=== PATIENT | female | born 1995 | race Asian ===

== ENCOUNTER 2018-01-21 16:22 | Emergency (ER) | payer MEDICAID ==
--- NOTE | 2018-01-21 17:11 | EDPHY ---
H & P Stated Complaint: L ANKLE INJ POST FALL Time Seen by Provider: 01/21/18 17:11 HPI/ROS: HPI: This is a 22-year-old female who presents with Chief Complaint: L ANKLE INJ POST FALL Location: Left lateral ankle Quality: Injury Duration: Prior to arrival Signs and Symptoms: No bleeding, no radiation, no numbness, no weakness, no tingling, no incontinence, + decreased range of motion, + swelling, + pain, no fever Timing: Acute Severity: [id number] Context: Patient is a student at [employer] reports that she was walking down the stairs and accidentally slipped on the bottom stair falling directly on her buttocks and twisting her left ankle. She believes that she everted her left ankle. She felt immediate, constant, moderate, nonradiating pain in the lateral portion. She reports that pain is increased with weight-bearing and touching the area. She has noticed swelling over the last 30 min to 1 hr. She has a history of ankle sprains in the past. Denies radiation, weakness, paresthesias.. Modifying Factors: No ice pack applied and no [id number] pain medications Comment: ROS: A comprehensive 10 system review of systems is otherwise negative aside from elements mentioned in the history of present illness. MEDICAL/SURGICAL/SOCIAL HISTORY: Medical history: Migraine headache. Takes extended control. Surgical history: Denies Social history: Nonsmoker. Denies drug use. CONSTITUTIONAL: Extremely polite and cooperative young adult female, awake and alert, no obvious distress HEENT: Atraumatic and normocephalic. NECK: supple, no midline tenderness, flexion 45 degrees, extension 45 degrees, right and left lateral flexion 45 degrees. No meningismus. Cardiovascular: Normal S1/S2, regular rate, regular rhythm, without murmur rub or gallop. PULMONARY/CHEST: Symmetrical and nontender. no crepitus. Clear to auscultation bilaterally. Good air movement. No accessory muscle usage. ABDOMEN: Soft, nondistended, nontender, no ecchymosis. EXTREMITIES: 2/2 pulses, strength 5/5, left Ankle: Mild effusion over the lateral malleolus; Plantar flexion to 50, dorsiflexion to 20. Foot inversion to 35 degree. Moderate tenderness/swelling Anterior talofibular ligament. No tenderness/swelling Calcaneofibular ligament, no tenderness/swelling posterior talofibular ligament, no tenderness/swelling posterior inferior tibiofibular ligament. Achilles tendon intact. DIP/PIP/MCP flexion/extension intact with good light touch sensation. no deformities, no clubbing, no cyanosis or edema. NEUROLOGICAL: no focal neuro deficits. GCS 15. Light touch sensation intact. SKIN: Warm and dry, no erythema. no rash. Good capillary refill. Source: Patient Exam Limitations: No limitations - Personal History LMP (Females 10-55): Extended Cycle BCP/Inj Current Tetanus Diphtheria and Acellular Pertussis (TDAP): Yes - Medical/Surgical History Hx Asthma: No Hx Chronic Respiratory Disease: No Hx Diabetes: No Hx Cardiac Disease: No Hx Renal Disease: No Hx Cirrhosis: No Hx Alcoholism: No Hx HIV/AIDS: No Hx Splenectomy or Spleen Trauma: No Other PMH: MIGRAINES - Social History Smoking Status: Current every day smoker Constitutional: Initial Vital Signs Temperature (C) 37.4 C 01/21/18 16:31 Heart Rate 90 01/21/18 16:31 Respiratory Rate 17 01/21/18 16:31 Blood Pressure 130/72 H 01/21/18 16:31 O2 Sat (%) 94 01/21/18 16:31 O2 Delivery Mode Room Air Allergies/Adverse Reactions: No Known Allergies Allergy (Unverified 01/21/18 16:31) Home Medications: Medication Instructions Recorded Depo-Subq Provera 104 01/21/18 Medical Decision Making - Diagnostics Imaging Results: Imaging Impressions Ankle X-Ray 01/21/18 16:35 Impression: No acute osseous findings. Procedures: Procedure: Splint placement. A left Velcro ankle stirrup splint was applied. After application of the splint I returned and re-examined the patient. The splint was adequately immobilizing the joint and distal to the splint the patient's circulation and sensation was intact. ED Course/Re-evaluation: Ankle x-ray my order shows no fracture, dislocation. Mild lateral soft tissue swelling noted Ice pack applied Placed in ankle Velcro stirrup splint, given crutches, orthopedic referral No signs of neurovascular compromise/tenting of skin/compartment syndrome/ extremities and joints examined above and below area of concern and are neurovascularly intact. This patient was seen under the supervision of my secondary supervising physician. I evaluated care for this patient independently. Discussed this patient with Dr. Ward. Differential Diagnosis: Ankle injury differential diagnosis includes but is not limited to tibia fracture, fibula fracture, metatarsal fracture, LisFranc fracture, achilles tendon rupture, sprain. Departure - Departure Disposition: Home, Routine, Self-Care Clinical Impression: Moderate left ankle sprain Qualifiers: Encounter type: initial encounter Qualified Code(s): S93.402A - Sprain of unspecified ligament of left ankle, initial encounter Condition: Good Instructions: Ankle Sprain (DC), Crutch Instructions (ED), Ankle Stirrup Splint (ED) Additional Instructions: Wear the ankle stirrup splint while out of bed until pain free. Use crutches to aid ambulation. Start with toe-touch weight-bearing status. Take Tylenol 650 mg every 4 hours and/or Ibuprofen 600 mg every 8 hours with food as needed for pain. Apply ice for 30 minutes at a time; 2-3 times per day for the next 1-2 days. Follow up with Orthopedics in7-10 days if symptoms persist at which time they will evaluate and recommend with you if conservative management versus further imaging is indicated. The x-rays obtained in the emergency department today demonstrate no evidence of an obvious fracture. Sometimes fractures are not obvious on the initial set of x-rays performed in the ED. For this reason, you should have repeat x-rays performed in 7-10 days if you are having any pain exclude the possibility of an occult fracture. Referrals: Gary Almanzar MD [Medical Doctor] - As per Instructions
[2018-01-21 17:52] VITALS: BP 119/71
== END 2018-01-21 17:50 | disposition home or self-care (01) ==
DX: S93.402A Sprain of unspecified ligament of left ankle, initial encounter (principal); W10.8XXA Fall (on) (from) other stairs and steps, initial encounter; Y92.214 College as the place of occurrence of the external cause; F17.200 Nicotine dependence, unspecified, uncomplicated